=== PATIENT | female | born 1955 | race Caucasian/White ===

== ENCOUNTER → 2016-08-01 | Outpatient (CLI) | payer OTHER ==
--- NOTE | 2016-08-01 12:42 | REPMRS ---
Patient History The patient states she had a clinical breast exam in Patient is postmenopausal. Family history of endometrial cancer in maternal grandmother at age 50 or over. Benign excisional biopsy of the right breast. Digital Woman Screen Mammo: August 01, 2016 - Exam #: [id number] Bilateral CC and MLO view(s) were taken. Technologist: Jessica Calvillo, Technologist Prior study comparison: July 11, 2014, digital woman screen mammo performed at [facility]. July 08, 2013, bilateral bilat screen digital mammo, performed at [facility] ([facility]). June 12, 2012, bilateral bilat screen digital mammo, performed at [facility] ([facility]). FINDINGS: There are scattered fibroglandular densities. There has been no change in the appearance of the mammogram from the prior studies. There is a mild amount of scattered fibroglandular density which is fairly symmetric. There is no interval development of dominant mass, architectural distortion, or clustered microcalcification suggestive of malignancy. ASSESSMENT: BI-RADS/ACR category 1 mammogram. Negative. Recommendation Routine screening mammogram in 1 year (for women over age 40). This mammogram was interpreted with the aid of an FDA-approved computer-aided dectection system. Electronically Signed By: Nash Dimas MD 08/01/16 [id number]
== END ==
LOC: M WHC 10:24
PROVIDERS: ATTEND Obstetrics & Gynecology
DX: Z12.31 Encounter for screening mammogram for malignant neoplasm of breast (principal)

== ENCOUNTER → 2016-11-02 | Outpatient (CLI) | payer OTHER ==
--- NOTE | 2016-11-02 13:34 | REP ---
Lumbar spine series: Five views. History: Acute bilateral low back pain with left-sided sciatica. Findings: There is a minimal dextroconvex curvature in the lumbar spine on the frontal view. Lumbar vertebral body heights are preserved. Alignment is otherwise normal. Disc spaces are maintained. There is mild discogenic spurring at L3-4, L2-3 and L4-5. Pedicles and posterior elements are intact. No fracture or collapse is seen. There is no evidence of spondylolysis or spondylolisthesis. There is facet hypertrophy and mild narrowing bilaterally at L5-S1. Sacrum and SI joints are intact. Tubal ligation bands are visible in the pelvis. Bowel gas pattern is normal. Psoas margins are symmetric. Impression: Mild degenerative disc spurring and facet osteoarthritis at L5-S1. No acute bony abnormality. Signed by Franklyn Dimas MD 11/02/2016 04:33 P
== END ==
LOC: M LRY 12:08
PROVIDERS: ATTEND Nurse Practitioner Family
DX: M54.42 Lumbago with sciatica, left side (principal)

== ENCOUNTER → 2018-01-18 | Outpatient (CLI) | payer BC | LOC: M WHC 15:33 | DX: Z12.31 Encounter for screening mammogram for malignant neoplasm of breast (principal); N60.31 Fibrosclerosis of right breast; N60.32 Fibrosclerosis of left breast | CPT/HCPCS: 77067 ==

== ENCOUNTER → 2019-01-21 | Outpatient (CLI) | payer MEDICARE ==
--- NOTE | 2019-01-21 15:20 | REP ---
BILATERAL SCREENING DIGITAL MAMMOGRAM WITH 3D TOMOSYNTHESIS: There are no palpable abnormalities or other breast complaints. The the patient states she had a clinical breast examination May/2018. The the patient states she performs self-breast examinations 12 times per year. The Tyrer-Cuzick Score is: 5.4% . Comparison is 08/01/2016 and 07/08/2013. The patient has had an excisional biopsy of the right breast that was benign. There are scattered areas of fibroglandular density. There is no dominant mass, micro calcific cluster or architectural distortion that would indicate malignancy. There are no additional findings on 3D tomosynthesiss. There is no change from the prior study. Impression: BIRADS/ACR category 1 mammogram. Negative. Recommendation: Routine annual screening mammography. This mammogram was interpreted with the aid of a FDA approved computer-aided detection system. A. Negative mammogram reports should not delay biopsy if a dominant or clinically suspicious mass is present. B. Not all breast cancers are identified by mammography or tomosynthesis. C. Adenosis and dense breasts may obscure an underlying neoplasm. Patient letter M1. Electronically Signed by Moody García MD 01/21/2019 03:10 P
== END ==
LOC: M WHC 13:49
PROVIDERS: ATTEND Obstetrics & Gynecology
DX: Z12.31 Encounter for screening mammogram for malignant neoplasm of breast (principal)

== ENCOUNTER → 2024-01-29 | Outpatient (CLI) | payer MEDICARE | LOC: M SLEEP 20:00 | PROVIDERS: ATTEND Nurse Practitioner Adult Health | DX: G47.33 Obstructive sleep apnea (adult) (pediatric) (principal) ==

== ENCOUNTER → 2024-09-23 | Outpatient (REF) | payer MEDICARE ==
[2024-09-23 17:50] LABS: APPEARANCE, URINE HAZY (CLEAR); BACTERIA, URINE AUTO 1+ (NEGATIVE); BILIRUBIN, URINE AUTO NEGATIVE (NEGATIVE); BLOOD, URINE BLOOD NEGATIVE (NEGATIVE); COLOR, URINE YELLOW (YELLOW); GLUCOSE, URINE (UA) AUTO NEGATIVE (NEGATIVE); KETONE, URINE AUTO NEGATIVE (NEGATIVE); LEUKOCYTE ESTERASE, URINE AUTO 2+ (NEGATIVE); NITRITE, URINE AUTO POSITIVE (NEGATIVE); PROTEIN, URINE AUTO NEGATIVE (NEGATIVE); RBC, URINE AUTO 1 /HPF (0-3); SPECIFIC GRAVITY URINE AUTO 1.016 (1.002-1.035); SQUAMOUS EPITHELIAL CELL UR AU 1 /HPF (0-6); UROBILINOGEN, URINE AUTO 0.2 mg/dL (0.0-2.0); WBC, URINE AUTO 38 /HPF (0-3)
== END ==
LOC: M SMT 16:41
PROVIDERS: ATTEND Physician Assistant
DX: R39.9 Unspecified symptoms and signs involving the genitourinary system (principal)